=== PATIENT | female | born 1995 | race Caucasian/White ===

== ENCOUNTER 2019-01-13 17:12 | Emergency (ER) | payer SELFPAY ==
--- NOTE | 2019-01-13 17:39 | ED Physician Documentation ---
General Adult - HISTORIAN Historian: patient - HPI Stated Complaint: Painful Urination Chief Complaint: General Adult Onset: days ago (3) Timing: still present Severity: moderate Further Comments: yes (Pt is a 23 yo female with dysuria. Pt states that she was admitted to a hospital in [facility] last October and was in the hospital for 5 days after a urinary tract infection. Pt states that she has continued to have symptoms since that time, with ongoing dysuria and urinary retention. Pt states that she was supposed to follow up for this difficulty but did not have the insurance to do it. Pt has not had fever or n/v. Pt denies hx STD's.) - ROS CONST: no problems EYES/ENT: none CVS/RESP: none GI/: abdominal pain (b/l lower abd pain, high suprapubic) MS/SKIN/LYMPH: none - PAST HX Past History: other (seizures, UTI with hospitalization) Surgeries/Procedures: none Allergies/Adverse Reactions: Allergies Allergy/AdvReac Type Severity Reaction Status Date / Time Penicillins Allergy Verified 01/13/19 17:40 Home Medications: Ambulatory Orders Medication Instructions Recorded NK 01/13/19 - SOCIAL HX Smoking History: cigarettes Drug Use: marijuana - FAMILY HX Family History: No - VITAL SIGNS Vital Signs: Vital Signs Temp Pulse Resp BP Pulse Ox 99.3 F 84 16 124/71 99 01/13/19 17:15 01/13/19 17:15 01/13/19 17:15 01/13/19 17:15 01/13/19 17:15 - REVIEWED ASSESSMENTS Nursing Assessment Reviewed: Yes Vitals Reviewed: Yes Progress - Progress Progress: NS 1 L IVF no change in sx Rx Nitrofurantoin (Macrobid) 100 mg. Take one every 12 hours for 7 days. Rx Pyridium 200 mg. Take one three times daily after meal for 2 days for painful voiding. (This medication turns body fluids orange.) Follow up with primary provider or with a Urologist if symptoms persist. General Adult Physical Exam - PHYSICAL EXAM GENERAL APPEARANCE: mild distress EENT: pharynx normal NECK: normal inspection, supple RESPIRATORY: no resp distress, chest non-tender, breath sounds normal CVS: reg rate & rhythm, heart sounds normal ABDOMEN: soft, no organomegaly, normal bowel sounds, tenderness (lower abd b/l, just above suprapubic area) SKIN: warm/dry, normal color EXTREMITIES: non-tender, normal range of motion, no edema NEURO: oriented X3, motor nml, sensation nml Discharge Clincal Impression: UTI (urinary tract infection) Qualifiers: Urinary tract infection type: site unspecified Hematuria presence: without hematuria Qualified Code(s): N39.0 - Urinary tract infection, site not specified Referrals: Primary Doctor,No [Primary Care Provider] - Condition: Stable Disposition: 01 HOME, SELF-CARE Decision to Admit: NO Decision Time: 19:30
[2019-01-13] MEDS ORDERED: 0.9 % SODIUM CHLORIDE 1,000 ML IV ONE (17:57)
[2019-01-13 18:13] LABS: APPEARANCE,URINE CLEAR (CLEAR); COLOR,URINE YELLOW (YELLOW); OCCULT BLOOD,URINE TRACE-INTACT (NEGATIVE); PH URINE 6.5 (5.0 - 8.0); UROBILINOGEN URINE 0.2 Eu (0.2-1.0)
[2019-01-13 18:16] LABS: BASOPHILS % 0.6 % (0.0-1.5); NEUTROPHILS # 6.2 # k/uL (1.4-7.7)
[2019-01-13 18:42] LABS: eGFR (Non-African) > 60
[2019-01-13 19:32] VITALS: BP 122/72
== END 2019-01-13 19:20 | disposition home or self-care (01) ==
LOC: ED 17:12
DX: N39.0 Urinary tract infection, site not specified (principal)
CPT/HCPCS: 80053; 81002; 85025; 87086; 96360; 99284; J7030; S1016